=== PATIENT | female | born 1940 | race Caucasian/White ===

== ENCOUNTER 2016-07-22 11:57 | Emergency (ER) | payer MEDICARE ==
[2016-07-22 12:43] LABS: HEMOGLOBIN 12.4 gm/dl (12.3-15.3); RED BLOOD COUNT 4.5 M/UL (4.00-5.10); WHITE BLOOD COUNT 6.1 K/UL (4.5-11.0)
== END 2016-07-22 17:00 | disposition home or self-care (01) ==
LOC: ER1 11:57
PROVIDERS: Emergency Medicine
DX: R00.1 Bradycardia, unspecified (principal); T50.905A Adverse effect of unspecified drugs, medicaments and biological substances, initial encounter; I10 Essential (primary) hypertension; E78.00 Pure hypercholesterolemia, unspecified; X58.XXXA Exposure to other specified factors, initial encounter
CPT/HCPCS: 36415; 70450; 71010; 80053; 80307; 81001; 82550; 82553; 83874; 84484; 85025; 93005; 99284; J7030; J7040

== ENCOUNTER → 2020-08-23 | Outpatient (CLI) | payer OTHER | LOC: KOH-I 11:35 | DX: M17.11 Unilateral primary osteoarthritis, right knee (principal) | CPT/HCPCS: 73564; 73610 ==

== ENCOUNTER 2021-02-02 18:34 | Emergency (ER) | payer OTHER ==
[~2021-02-02 18:34] MED LIST: ASPIRIN CHEWABL81 MG PO; SYMBICORT 16010.2 GM INH
[2021-02-02 21:45] LABS: HEMOGLOBIN 15.7 gm/dl (12.3-15.3); RED BLOOD COUNT 5.2 M/UL (4.00-5.10); WHITE BLOOD COUNT 14.4 K/UL (4.5-11.0)
[2021-02-02 22:05] LABS: BUN/CREATININE RATIO 23 (0-10)
[2021-02-02] MEDS ORDERED: PREDNISONE20 MG PO (23:59)
[2021-02-02] MEDS ORDERED: ZITHROMAX250 MG PO (23:59)
== END 2021-02-03 00:30 | disposition home or self-care (01) ==
LOC: ER1 18:34
PROVIDERS: Family Medicine
DX: J44.9 Chronic obstructive pulmonary disease, unspecified (principal); Z20.822 Contact with and (suspected) exposure to COVID-19
CPT/HCPCS: 71046; 80053; 82550; 82553; 83605; 83735; 84484; 85025; 87081; 87880; 94640; 94664; 94760; 99284; U0002

== ENCOUNTER → 2021-06-01 | Outpatient (CLI) | payer OTHER ==
[~2021-06-01] MED LIST changes: +PREDNISONE20 MG PO; +ZITHROMAX250 MG PO
== END ==
LOC: KOH-I 14:42
DX: J42 Unspecified chronic bronchitis (principal); R05.9 Cough, unspecified; J98.11 Atelectasis; K44.9 Diaphragmatic hernia without obstruction or gangrene
CPT/HCPCS: 71046

== ENCOUNTER → 2021-07-13 | Outpatient (CLI) | payer OTHER | LOC: KOH-I 15:10 | DX: R06.02 Shortness of breath (principal) | CPT/HCPCS: 71046 ==

== ENCOUNTER → 2021-07-18 | Outpatient (CLI) | payer OTHER ==
[2021-07-18 13:29] LABS: HEMOGLOBIN 17.6 gm/dl (12.3-15.3); RED BLOOD COUNT 5.8 M/UL (4.00-5.10); WHITE BLOOD COUNT 6.1 K/UL (4.5-11.0)
== END ==
LOC: LAB 12:43
PROVIDERS: Nurse Practitioner
DX: I20.9 Angina pectoris, unspecified (principal); R53.83 Other fatigue; R94.31 Abnormal electrocardiogram [ECG] [EKG]; R05.9 Cough, unspecified; R06.02 Shortness of breath; Z79.899 Other long term (current) drug therapy
CPT/HCPCS: 36415; 80053; 82550; 82553; 83880; 84484; 85025; 85379; 86140; 93005

== ENCOUNTER 2021-08-24 14:29 | Emergency (ER) | payer OTHER ==
[2021-08-24 15:28] LABS: HEMOGLOBIN 17.2 gm/dl (12.3-15.3); RED BLOOD COUNT 5.65 M/UL (4.00-5.10); WHITE BLOOD COUNT 6.6 K/UL (4.5-11.0)
[2021-08-24] MEDS ORDERED: IMODIUM CAP 2 MG2 MG PO (18:25)
[2021-08-24] MEDS ORDERED: ONDANSETRON ODT4 MG SL (18:25)
== END 2021-08-24 18:50 | disposition home or self-care (01) ==
LOC: ER1 14:29
PROVIDERS: Student in an Organized Health Care Education/Training Program
DX: R10.32 Left lower quadrant pain (principal); R19.7 Diarrhea, unspecified; R11.0 Nausea; R10.814 Left lower quadrant abdominal tenderness; I10 Essential (primary) hypertension
CPT/HCPCS: 80053; 81001; 83690; 85025; 93005; 96374; 96375; 96376; 99284; J1885; J2270; J2405; Q9967

== ENCOUNTER 2021-10-20 05:10 | Emergency (ER) | payer OTHER ==
[~2021-10-20 05:10] MED LIST changes: +IMODIUM CAP 2 MG2 MG PO; +ONDANSETRON ODT4 MG SL
[2021-10-20 06:19] LABS: HEMOGLOBIN 16.7 gm/dl (12.3-15.3); RED BLOOD COUNT 5.36 M/UL (4.00-5.10); WHITE BLOOD COUNT 6.6 K/UL (4.5-11.0)
[2021-10-20 06:35] LABS: BUN/CREATININE RATIO 13 (0-10)
== END 2021-10-20 13:45 | disposition home or self-care (01) ==
LOC: ER1 05:10
PROVIDERS: Emergency Medicine
DX: F41.9 Anxiety disorder, unspecified (principal); R07.9 Chest pain, unspecified; E78.5 Hyperlipidemia, unspecified; I10 Essential (primary) hypertension; Z88.5 Allergy status to narcotic agent; Z20.822 Contact with and (suspected) exposure to COVID-19
CPT/HCPCS: 71045; 80048; 82550; 82553; 83880; 84439; 84443; 84484; 85025; 93005; 96374; 96376; 99284; J2250; U0002